=== PATIENT | female | born 1955 | race Two or more races ===

== ENCOUNTER 2019-04-11 19:00 | Inpatient (IN) | payer OTHER ==
[~2019-04-11] VITALS: Ht 165.1 cm; Wt 95.3 kg
[~2019-04-11 19:00] MED LIST: DIOVAN40 MG; GLUCOVANCE 1.251 TAB; MILLIPRED DP5 M1 PO; SEPTRA DS TABLE1 TAB PO; TRAMADOL HCL50 MG PO
--- NOTE | 2019-04-11 19:51 | NUR ---
SE RECIBE PACIENTE QUE REFIERE DOLOR ABDOMINAL DESDE ESTA MANANA.
--- NOTE | 2019-04-11 20:35 | NUR ---
MR. PRECIADO ORIENTA A PACIENE SOBRE TRAAMIENTO. HAJA MUESTRAS DE LABORATORIO ORDENADAS. CANALIZA CON AREA DE VENOPUNCION SUZANNE DE EDEMA O ENROJECIMIENTO. SE ADMINISTRAN MEDICAMENTOS ORDENADOS. SE MANTIENE EN OBSERVACION POR CAMBIOS.
--- NOTE | 2019-04-11 22:53 | NUR ---
PTE RE EVALUADA POR EL DR. HERNANDEZ . [place]. OFRECIDO POR MR. PRECIADO QUIEN ORIENTA AL PACIENTE Y ADMINISTRA MEDICAMENTOS REID ORDEN MDICA.
--- NOTE | 2019-04-11 23:22 | NUR ---
PACIENTE ALERTA Y ORIENTADA EN MARIA INES DOMINIC ESFERAS, PRESENTA BUEN PATRON RESPIRATORIO Y SUZANNE DE DOLOR. CANALIZADA EN BRAZO LT PATENTE Y SUZANNE DE S/S DE FLEBITIS E INFILRACION, RECIBIENDO D5W/045% NSS A 100 ML/HR. PENDIENTE CONSULTA MEDICINA INTERNA DR RING POR DIVERTICULITIS.
--- NOTE | 2019-04-12 07:45 | NUR ---
SE RECIBE PACIENTE DE TURNO ANTERIOR.EN CAMA CON LAS BARANDAS ELEVADAS. ESTA ALERTA Y ORIENTADA.ACOMPANADA POR FAMILIAR.AREA DE VENOPUNCION ESTA LIMPIA Y SECA,SUZANNE DE EDEMA. ES MANTENIDA CON CABEZERA A 45 GRADOS,BARANDAS ELEVADAS,TIMBRE ACCESIBLE Y EN OBSERVACION CONSANTE POR CAMBIOS EN CONDICION.
== END 2019-04-15 22:39 | disposition home or self-care (01) | DRG 392 ==
LOC: ER 19:00 → MEDJ 04-12 12:10
PROVIDERS: ADMIT Internal Medicine
DX: K57.32 Diverticulitis of large intestine without perforation or abscess without bleeding (principal); I10 Essential (primary) hypertension; E11.9 Type 2 diabetes mellitus without complications; E86.0 Dehydration; N20.0 Calculus of kidney; I25.10 Atherosclerotic heart disease of native coronary artery without angina pectoris; I25.2 Old myocardial infarction; Z79.4 Long term (current) use of insulin

== ENCOUNTER 2021-10-26 09:03 | Outpatient (CLI) | payer OTHER | END 2021-10-26 09:14 | disposition home or self-care (01) | LOC: TOM 09:03 | DX: K57.92 Diverticulitis of intestine, part unspecified, without perforation or abscess without bleeding (principal) ==